=== PATIENT | male | born 1980 | race Two or more races ===

== ENCOUNTER 2023-10-05 01:23 | Emergency (ER) | payer OTHER ==
[~2023-10-05] VITALS: Ht 182.9 cm; Wt 140.0 kg
[2023-10-05 03:00] VITALS: BP 134/77; PULSE 80; RESP 14; RESP 17; TEMP 98.3; O2SAT 96; O2SAT 97
[2023-10-05] MEDS: Surgicel PA 2X3 INCH TOP ONE (03:00)
[2023-10-05] MEDS: GELATIN 1 SPONGE SIZE 100 TOP ONE (03:22)
== END 2023-10-05 04:02 | disposition home or self-care (01) ==
LOC: EDBD 01:23 → ER 01:23
DX: I83.891 Varicose veins of right lower extremity with other complications (principal); E11.9 Type 2 diabetes mellitus without complications